=== PATIENT | male | born 2000 | race Caucasian/White ===

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

== ENCOUNTER 2022-06-12 13:02 | Emergency (ER) | payer BC, SELFPAY ==
[2022-06-12 13:32] VITALS: BP 120/52; PULSE 114; RESP 20; TEMP 38.6; O2SAT 98
--- NOTE | 2022-06-12 13:38 | ED.URI ---
HPI - URI/Sore Throat General Chief Complaint: Upper Respiratory Infection Stated Complaint: Fever, Sore Throat Time Seen by Provider: 06/12/22 13:04 Source: patient Mode of arrival: ambulatory Limitations: no limitations History of Present Illness HPI Narrative: Kwan is a 21-year-old male patient presenting to clinic today with complaints of fever and sore throat x1 week. He reports he went to another urgent care earlier this week and was tested for strep and flu. Both tests were negative but they went ahead and gave him Augmentin for his tonsillitis/pharyngitis. He reports that his symptoms are worsening MD elicited complaint: sore throat and nasal congestion Related Data Home Medications Medication Instructions Recorded Confirmed escitalopram oxalate 10 mg tablet 10 mg DAILY 06/12/22 06/12/22 pantoprazole 40 mg tablet,delayed 40 mg PO DAILY 06/12/22 06/12/22 release trazodone 50 mg tablet 50 mg DAILY 06/12/22 06/12/22 Allergies Allergy/AdvReac Type Severity Reaction Status Date / Time No Known Allergies Allergy Verified 06/12/22 13:51 Review of Systems Review of Systems: Pertinent positives per HPI. Patient denies any rash, headache, visual changes, dizziness, cough, shortness of breath, chest pain, palpitations, nausea, vomiting, diarrhea, constipation, abdominal pain, or any urinary issues. PMFSH Comments At the time of my signature, I reviewed and agree with the nursing past medical, surgical, social, and family history. There is no relevant family history pertinent to the patient complaint. Exam Narrative: General: Well-developed, well nourished, in no apparent distress Head: Normocephalic, atraumatic Eyes: Pupils equally round and reactive to light bilaterally, EOM intact, sclera and conjunctive clear, no discharge, lids normal Ears: TMs intact and clear, ear canals clear, no drainage, grossly hearing normal. Nose: Nares patent, clear discharge, no inflammation, no sinus tenderness. Mouth: Oral pharynx without lesions or masses, good dentition, MMM. oropharynx beffy red with tonsillar enlargement and whitish patches to the soft palate. Neck: Supple, trachea midline, no enlargement of anterior or posterior cervical nodes, no thyroid masses or goiter palpable. Cardio: Regular rate and rhythm, s1 and s2 normal, no murmur appreciated. Resp: Clear to auscultation bilaterally, no rhonchi, rales, wheezing or rubs Course Course Emergency Course: Portions of this record may have been created with voice recognition software. Level of Care: Express Care Visit Vital Signs Vital signs: Vital Signs Temperature 38.6 C H 06/12/22 13:32 Pulse Rate 114 H 06/12/22 13:32 Respiratory Rate 20 06/12/22 13:32 Blood Pressure 120/52 L 06/12/22 13:32 Pulse Oximetry 98 06/12/22 13:32 Oxygen Delivery Room Air 06/12/22 13:32 Temperature 38.6 C H 06/12/22 13:32 Pulse Rate 114 H 06/12/22 13:32 Respiratory Rate 20 06/12/22 13:32 Blood Pressure 120/52 L 06/12/22 13:32 Pulse Oximetry 98 06/12/22 13:32 Oxygen Delivery Room Air 06/12/22 13:32 Vital signs reviewed MDM - URI/Sore Throat MDM Narrative Medical decision making narrative: At the time of visit patient is resting comfortably on the exam table. mono testing was negative and symptoms are getting worse on antibiotics, I suspect the patient has pharyngitis with a candidal infection. Prescription for nystatin was sent to the pharmacy. Discussed continued use of amoxicillin and following up with the PCP if symptoms persist after 1 week. Supportive measures were discussed with the patient he voiced understanding of discharge instructions and agrees to treatment plan Differential Diagnosis Differential diagnosis: Likely sinusitis, viral infection, influenza and pharyngitis Lab Data Labs: [place] Screen Negative (Reference Range: Negative)
== END 2022-06-12 14:11 | disposition home or self-care (01) ==
PROVIDERS: Emergency Provider Nurse Practitioner Family; PCP Family Medicine
DX: B00.2 Herpesviral gingivostomatitis and pharyngotonsillitis (principal); B37.0 Candidal stomatitis
CPT/HCPCS: 36416; 86308; 99213; G0463